=== PATIENT | male | born 1985 | race Caucasian/White ===

== ENCOUNTER 2021-07-07 10:37 | Emergency (ER) | payer OTHER, SELFPAY ==
[2021-07-07 11:35] VITALS: BP 139/89; PULSE 62; RESP 16; TEMP 36.5; O2SAT 98; BMI 32.8
[2021-07-07] MEDS: FLUORESCEIN 1 MG STRIP EYE-BOTH (13:00)
[2021-07-07] MEDS: PROPARACAINE 0.5% OPHTH SOL 1 DROPS EYE-BOTH (13:00)
--- NOTE | 2021-07-07 13:08 | ED.EYEPROB ---
HPI - Eye Problem <Basilio Perez PA-C - Last Filed: 07/07/21 19:39> General Chief complaint: Eye Problems Stated complaint: Got chemicals in eye Time Seen by Provider: 07/07/21 12:06 Source: patient Mode of arrival: Family Vehicle History of Present Illness HPI Narrative: Patient is a 36-year-old male presenting to the emergency department today for an evaluation of chemical irritant in both eyes. Patient states that he was at work when he had chemical be in the 8525 splash back into his eyes. He states that he irrigated both eyes extensively for 20 minutes with water and then came to the emergency department. He states that he has mild blurry vision in the left eye and notes a scratchy and dry irritation in the left eye. No fever, chills, cough, shortness of breath, nausea, vomiting, diarrhea, abdominal pain, dysuria, hematuria, or any other concerning symptoms reported. Patient states that the chemical was not ingested. No further concerns reports that this time. Related Data Allergies Allergy/AdvReac Type Severity Reaction Status Date / Time No Known Drug Allergies Allergy Verified 07/07/21 11:34 Review of Systems <Basilio Perez PA-C - Last Filed: 07/07/21 19:39> Constitutional Constitutional: Denies chills, Denies fatigue, Denies fever(s), Denies frequent falls, Denies lethargy and Denies weakness Eyes Eyes: Reports blurry vision, Denies eye discharge, Reports dry eyes, Reports irritation and Denies loss of vision ENT Ears, Nose, Mouth, and Throat: Denies change in voice, Denies dizziness, Denies neck pain, Denies sore throat and Denies throat swelling Cardiovascular Cardiovascular: Denies chest pain, Denies irregular heart rhythm, Denies lightheadedness, Denies palpitations, Denies dyspnea, Denies dyspnea on exertion and Denies orthopnea Respiratory Respiratory: Denies cough, Denies dyspnea, Denies dyspnea on exertion and Denies wheezing Gastrointestinal Gastrointestinal: Denies abdominal pain, Denies change in bowel habits, Denies diarrhea, Denies nausea and Denies vomiting Genitourinary Genitourinary: Denies hematuria, Denies flank pain, Denies urinary incontinence and Denies urinary urgency Musculoskeletal Musculoskeletal: Denies back pain, Denies muscle weakness, Denies neck pain, Denies numbness and Denies tingling Integumentary/Breasts Skin/Breast: Denies pruritus, Denies erythema, Denies rash and Denies wounds Neurologic Neurologic: Denies behavioral changes, Denies confusion, Denies dizziness, Denies frequent falls, Denies loss of vision, Denies numbness, Denies tingling and Denies weakness Psychiatric Psychiatric: Denies behavioral changes and Denies confusion Endocrine Endocrine: Denies fatigue and Denies palpitations Allergic/Immunologic Allergic/Immunologic: Denies throat swelling and Denies wheezing Patient History <Basilio Perez PA-C - Last Filed: 07/07/21 19:39> Social History Smoking Status: Current every day smoker Smoking Status: Current every day smoker tobacco type: vaping alcohol intake frequency: 0-2 drinks per day Substance Use Type: does not use Exam <Basilio Perez PA-C - Last Filed: 07/07/21 19:39> Narrative Exam Narrative: GENERAL: 36 year old patient appears stated age. Well-developed patient, in mild distress. HEAD: Atraumatic. Normocephalic. EYES: Pupils equal round and reactive. Extraocular motions intact. Bilateral conjunctival injection, left greater than right. Fluorescein eye stain did not show signs of corneal abrasion or foreign body. ENT: Nose without bleeding, purulent drainage. Throat without erythema, tonsillar hypertrophy or exudate. Airway patent. NECK: Trachea midline. Non tender CARDIOVASCULAR: Regular rate and rhythm without murmurs, gallops, or rubs. RESPIRATORY: Clear to auscultation. Breath sounds equal bilaterally. No wheezes, rales, or rhonchi. GASTROINTESTINAL: Abdomen soft, non-tender, nondistended. EXTREMITIES: No edema or joint tenderness. BACK: Nontender without deformity or crepitance. No flank tenderness. NEURO: AOx3. SKIN: No rash or erythema of visible areas Initial Vital Signs Initial Vital Signs: Vital Signs Temperature 97.7 F 07/07/21 11:35 Pulse Rate 62 07/07/21 11:35 Respiratory Rate 16 07/07/21 11:35 Blood Pressure 139/89 07/07/21 11:35 Pulse Oximetry 98 07/07/21 11:35 <Julisa Heaton DO - Last Filed: 07/08/21 07:13> Initial Vital Signs Initial Vital Signs: Vital Signs Temperature 97.7 F 07/07/21 11:35 Pulse Rate 62 07/07/21 11:35 Respiratory Rate 16 07/07/21 11:35 Blood Pressure 139/89 07/07/21 11:35 Pulse Oximetry 98 07/07/21 11:35 Course <Basilio Perez PA-C - Last Filed: 07/07/21 19:39> Course Course Narrative: Fluorescein eye stain performed. PH of eyes checked in the emergency department, approximately 7.0. Orders Ordered: Discontinued Medications Fluorescein Sodium (Fluorescein 1 Mg Strip) 1 mg EYE-BOTH NOW ONE Stop: 07/07/21 12:56 Last Admin: 07/07/21 13:00 Dose: 1 mg Documented by: FABIO Proparacaine HCl (Proparacaine 0.5% Ophth Ita) 1 drops EYE-BOTH NOW ONE Stop: 07/07/21 12:56 Last Admin: 07/07/21 13:00 Dose: 1 drops Documented by: FABIO Vital Signs Vital signs: Vital Signs - 8 hr 07/07/21 13:32 Pulse Rate 94 H Blood Pressure 114/67 Pulse Oximetry 57 L <Julisa Heaton DO - Last Filed: 07/08/21 07:13> Orders Ordered: Discontinued Medications Fluorescein Sodium (Fluorescein 1 Mg Strip) 1 mg EYE-BOTH NOW ONE Stop: 07/07/21 12:56 Last Admin: 07/07/21 13:00 Dose: 1 mg Documented by: FABIO Proparacaine HCl (Proparacaine 0.5% Ophth Ita) 1 drops EYE-BOTH NOW ONE Stop: 07/07/21 12:56 Last Admin: 07/07/21 13:00 Dose: 1 drops Documented by: FABIO Vital Signs Vital signs: Vital Signs - 8 hr 07/07/21 13:32 Pulse Rate 94 H Blood Pressure 114/67 Pulse Oximetry 57 L MDM - Eye Problem <Basilio Perez PA-C - Last Filed: 07/07/21 19:39> MDM Narrative Medical decision making narrative: To consider contact irritant versus corneal abrasion versus viral conjunctivitis versus bacterial conjunctivitis versus allergic conjunctivitis. Overall physical examination and history wrist during. Discussed results of fluorescein eye exam with patient inform the patient that no corneal abrasion was identified. Additionally, I informed the patient that I consult with poison Control and they recommended that I checked the pH of the eyes bilaterally and irrigate if needed. Both eyes were checked and it was found that the pH was approximately 7.0. Patient states he feels comfortable being discharged home at this time. Strict return precautions were discussed with the patient prior to discharge. Discharge Plan Departure Patient Disposition: Home Clinical Impression: Chemical insult, eye Instructions: DI for Chemical Eye Burn Activity Restrictions/Additional Instructions: *You have been diagnosed with chemical irritant of the eyes *What to do: *Please continue to take your regular medications as directed. [ ] New medication prescriptions sent to your pharmacy: [ ] [ ] New medication written as a paper prescription [X] No new medications given I recommend using an artificial tear solution to help alleviate the dryness and itchiness year experiencing in your left eye. I recommend returning to the emergency department if you experience worsening pain in the eyes, discharge from the eyes, worsening vision, or any other concerning symptoms. *Please follow up with your primary care provider in 2-3 days, call for an appointment. Let them know you were seen in the Emergency Department and that we ask that you be seen in follow up. We will electronically transmit a record of today's note if your PCP is in our system *If you do not have a primary care provider please contact the [facility] Resource line at [phone]. They will ask some questions about your medical history and help get you set up with a doctor in the community. *Return to Emergency Department if you should have any new, worsening or concerning symptoms, such as fever greater than 101 F, shaking chills, worsening pain, worsening vision, discharge from the eyes, persistent vomiting or other bothersome symptoms. <Julisa Heaton, DO - Last Filed: 07/08/21 07:13> Cosign ED Attending Rachidature Attestation: I was immediately available in the department for consultation. Documentation has been reviewed. I agree with assessment and plan.
--- NOTE | 2021-07-07 13:29 | PC.NURSE ---
repeat visual acuity, left eye 20/40 right eye 20/20 both 20/15
[2021-07-07 13:32] VITALS: BP 114/67; PULSE 94; O2SAT 57
== END 2021-07-07 13:51 | disposition home or self-care (01) ==
PROVIDERS: Emergency Provider Physician Assistant
DX: H57.13 Ocular pain, bilateral (principal); H53.8 Other visual disturbances
CPT/HCPCS: 99282

== ENCOUNTER 2024-07-17 17:31 | Emergency (ER) | payer OTHER, SELFPAY ==
[2024-07-17 17:37] VITALS: BP 139/95; PULSE 93; RESP 18; TEMP 37.2; O2SAT 94; BMI 37.5
--- NOTE | 2024-07-17 17:46 | DI.US.S_ITS ---
PROCEDURE: US PERIPH VENOUS LOW EXTREM LT INDICATIONS: suspected DVT in left thigh TECHNIQUE: Real-time imaging, as well as color and pulse Doppler interrogation, were performed of the lower extremity deep veins from the inguinal ligament to the popliteal fossa, with documentation of the visualized calf veins. COMPARISON: None. Findings and impression: Deep venous occlusive thrombus is seen in the main femoral vein of the thigh and popliteal vein. Dictated by: Kelvin Styles M.D. on 07/17/2024 at 18:44 Approved by: Kelvin Styles M.D. on 07/17/2024 at 18:44
--- NOTE | 2024-07-17 19:10 | ED_ITS ---
HPI - Extremity Problem General Chief complaint: Extremity Problem,Nontraumatic Stated complaint: hx blood clots, px L thigh w/swelling Time Seen by Provider: 07/17/24 19:09 Source: patient Mode of arrival: Ambulatory History of Present Illness HPI Narrative: Patient is a 39-year-old male with history of prior DVT antiphospholipid antibody and factor 5 presenting today with left leg pain. Reports increasing pain and swelling today. He had a previous blood clot in 2021. Reports that he has not had any recent airplane trips. He was really sick the beginning of June but reports he was not bed ridden. He has absolutely no chest pain or shortness of breath. Reports increasing pain throughout the day Related Data Previous Rx's Medication Instructions Recorded apixaban 5 mg (74 tabs) tablets in See Rx Instructions PO .COMPLEX 07/17/24 a dose pack ([employer] DVT-PE Treat #74 ea 30D Start) Allergies Allergy/AdvReac Type Severity Reaction Status Date / Time No Known Drug Allergies Allergy Verified 07/07/21 11:34 Patient History Social History Smoking Status: Current every day smoker Smoking Status: Current every day smoker tobacco type: vaping alcohol intake frequency: 0-2 drinks per day Exam Initial Vital Signs Initial Vital Signs: Vital Signs Temperature 99 F 07/17/24 17:37 Pulse Rate 93 H 07/17/24 17:37 Respiratory Rate 18 07/17/24 17:37 Blood Pressure 139/95 H 07/17/24 17:37 Pulse Oximetry 94 07/17/24 17:37 Oxygen Delivery Method Room Air 07/17/24 17:37 GENERAL: Well-appearing, well-nourished and in no acute distress. CARDIOVASCULAR: peripheral pulses in tact, cap refill <2 sec RESPIRATORY: No respiratory distress, speaks in full sentences without difficulty EXTREMITIES: Normal range of motion, no clubbing or edema. Neurovascularly intact Left lower extremity distal pedal pulse intact mild pain in left calf some mild swelling, minimal calf pain more pain in left medial thigh but no significant swelling NEUROLOGICAL: Cranial nerves II through XII grossly intact. Normal gait and speech. SKIN: Warm, dry, no petechiae, no rashes or lesions. Course Orders Ordered: Discontinued Medications Apixaban (Apixaban 5 Mg Tablet) 10 mg PO NOW ONE Stop: 07/17/24 19:18 Last Admin: 07/17/24 19:34 Dose: 10 mg Documented By: WINIFRED Vital Signs Vital signs: Vital Signs - 8 hr 07/17/24 17:37 Temperature 99 F Pulse Rate 93 H Respiratory Rate 18 Blood Pressure 139/95 H Pulse Oximetry 94 Oxygen Delivery Method Room Air MDM - Extremity (Nontraumatic) Imaging Data US - DVT: Radiologist's Impression: PROCEDURE: US PERIPH VENOUS LOW EXTREM LT INDICATIONS: suspected DVT in left thigh TECHNIQUE: Real-time imaging, as well as color and pulse Doppler interrogation, were performed of the lower extremity deep veins from the inguinal ligament to the popliteal fossa, with documentation of the visualized calf veins. COMPARISON: None. Findings and impression: Deep venous occlusive thrombus is seen in the main femoral vein of the thigh and popliteal vein. Dictated by: Kelvin Styles M.D. on 07/17/2024 at 18:44 MDM Narrative Medical decision making narrative: Patient 39 year-old male with prior history of DVT presenting today with left leg swelling. He has multiple risk factors including factor 5 and antiphospholipid antibody. Only takes aspirin daily. Ultrasound confirms DVT in main femoral vein of the thigh and popliteal vein. No indication for thrombolytics. Discussion with patient about anticoagulation risks and benefits and when to return to ED. he was given Eliquis 10 mg here Discharge Plan Departure Patient Disposition: Home Clinical Impression: Deep vein thrombosis of lower extremity Instructions: Deep Vein Thrombosis Activity Restrictions/Additional Instructions: *You have been diagnosed with DVT *What to do: At this time I recommend compression socks elevation You will likely be on anticoagulation for the rest of your life, please discuss this with your PCP *Continue to take medications as directed Eliquis 10 mg twice a day for 1 week then 5 mg twice daily No ibuprofen Advil Aleve, aspirin Okay to take Tylenol 1000 mg every 6 hours if needed for pain *Follow up with your primary care provider in 2-3 days or call [phone] *Return to ER if you should have increased bleeding head injury nausea vomiting, chest pain shortness of breath or any new, worsening or concerning symptoms Prescriptions: New Eliquis DVT-PE Treat 30D Start 5 mg (74 tabs) tablets,dose pack See Rx Instructions .ROUTE .COMPLEX Qty: 74 0RF Rx Instructions: orally per package directions Stand Alone Forms: Patient Portal/API/Survey
[2024-07-17] MEDS: APIXABAN 5 MG TABLET 10 MG PO (19:34)
[2024-07-17 19:37] VITALS: PULSE 97; O2SAT 94
[2024-07-17 19:38] VITALS: BP 123/85; PULSE 97; O2SAT 94
== END 2024-07-17 19:43 | disposition home or self-care (01) ==
PROVIDERS: Emergency Provider Emergency Medicine
DX: I82.412 Acute embolism and thrombosis of left femoral vein (principal); I82.432 Acute embolism and thrombosis of left popliteal vein; D68.61 Antiphospholipid syndrome; Z79.82 Long term (current) use of aspirin
CPT/HCPCS: 36415; 93971; 99283